=== PATIENT | male | born 1955 | race Caucasian/White ===

== ENCOUNTER 2022-10-16 07:04 | Emergency (ER) | payer BC, SELFPAY ==
[2022-10-16 07:06] VITALS: BP 173/93; PULSE 82; RESP 27; TEMP 37.2; O2SAT 100; BMI 32.8
--- NOTE | 2022-10-16 07:19 | CT_ITS ---
HISTORY: headache, syncope. TECHNIQUE: Multiple axial images were obtained of the head without intravenous contrast. A radiation dose optimization technique was used for this scan. 244 images. COMPARISON: None. FINDINGS: BRAIN PARENCHYMA: Multiple foci and zones of low attenuation in the bilateral cerebral white matter compatible with chronic small vessel ischemic gliosis. No acute intra-axial hemorrhage identified. CSF SPACES: Generalized volume loss. No midline shift or other significant mass effect. No acute extra-axial hemorrhage seen. OTHER: Intact calvarium. Mild fluid in the right maxillary sinus. Unremarkable orbits. CT/Brain/Head without Contrast IMPRESSION: No acute intracranial process identified. Mild chronic involutional and white matter changes. Electronically Signed: Nini Wharton MD at 8:11 EDT ,
--- NOTE | 2022-10-16 07:19 | EKG12_ITS ---
Test Reason : CP Blood Pressure : / mmHG Vent. Rate : 080 BPM Atrial Rate : 080 BPM P-R Int : 148 ms QRS Dur : 090 ms QT Int : 380 ms P-R-T Axes : 052 010 021 degrees QTc Int : 438 ms Normal sinus rhythm Inferior infarct , age undetermined Abnormal ECG No previous ECGs available Confirmed by DEB CRUZ ([id number]), editorial assistant ANNA BRAY ([id number]) on 10/30/2022 10:53:22 AM Referred By: ROYCE Confirmed By:DEB CRUZ
--- NOTE | 2022-10-16 07:19 | CT_ITS ---
INDICATION: Chest pain. Syncopal episode. Headache. Left arm numbness. EXAMINATION: CTA CHEST, ABDOMEN AND PELVIS WITH CONTRAST - TECHNIQUE: A CTA of the chest, abdomen, and pelvis is obtained with sagittal and coronal reconstructed MIP views. Three-dimensional surface rendered sequence of the thoracic and abdominal aorta was obtained. A radiation dose optimization technique was used for this scan. mL of Isovue-370. Oral contrast: None. COMPARISON: None. FINDINGS: CT CHEST: THORACIC AORTA: Mild atherosclerotic plaque formation of the aortic arch. No evidence of aortic dissection. ABDOMINAL AORTA: Atherosclerotic plaque formation of the abdominal aorta and the major visceral branches. LUNGS: The lungs are well-expanded without acute or chronic changes. No effusions or pneumothorax. MEDIASTINUM: The thyroid gland is normal. No mediastinal or hilar adenopathy. HEART: Heart is normal size. No pericardial effusion. Coronary artery calcification. CT ABDOMEN AND PELVIS: LIVER: The liver enhances homogeneously. No masses identified. GALLBLADDER: The patient is status post cholecystectomy. SPLEEN: Normal. PANCREAS: No masses or inflammation. ADRENAL GLANDS: Normal. KIDNEYS AND URETERS: The kidneys both enhance appropriately. There are normal size and shape. No hydronephrosis or nephrolithiasis. No renal masses or cysts. STOMACH: Surgical clips are seen in the gastroesophageal junction. SMALL BOWEL: No abnormal distention of the small bowel. MESENTERY: No mesenteric inflammation. No ascites. COLON: No significant diverticulosis, masses or inflammation. The colon otherwise is normal. There is a large fatty ileocecal valve. APPENDIX: The appendix is visualized and normal. IVC: Normal. RETROPERITONEUM: No retroperitoneal lymphadenopathy. PELVIC STRUCTURES: Normal bladder. SOFT TISSUES ABDOMEN: The anterior abdominal wall is normal. SOFT TISSUE CHEST: The extrathoracic soft tissues are normal. BONES: Mild degree of degenerative changes of the lumbar spine. CT/CTA Chst, Abd, Pel W and/or WO IMPRESSION: Mild degree of atherosclerotic plaque formation of the aortic arch. No evidence of aortic dissection. Atherosclerotic plaque formation of the abdominal aorta and major visceral branches. Status post cholecystectomy. Electronically Signed: Nj Douglas MD at 8:26 EDT ,
[2022-10-16 07:25] LABS: Absolute Lymphocyte Count 0.79 X10^3/uL (0.83-4.51); Absolute Neutrophil Count 10.8 X10^3/uL (2.0-7.7); Basophil# 0.02 X10^3/uL; Basophil% 0.2 % (0-1); Hematocrit 45.8 % (40-54); Hemoglobin 15.1 g/dL (13.0-16.5); Lymphocyte # 0.79 X10^3/ul (0.83-4.51); Lymphocyte % 6.7 % (19-41); Mean Corpuscular Hgb 29.5 pg (27.0-32.0); Mean Corpuscular Volume 89.6 fL (80-94); Mean Platelet Vol. 8.8 fl (6.2-12.0); Monocyte# 0.25 X10^3/uL; Monocyte% 2.1 % (0-10); NRBC Flagged by Analyzer 0 % (0-5); Neutrophil # 10.77 X10^3/uL (2.7-7.7); Neutrophil % 90.8 % (47-70); Platelet Count 334 K/mm3 (150-450); RBC Distribution Width CV 12.8 % (11.6-14.6); RBC Distribution Width SD 42.3 fl (35.1-43.9); Red Blood Count 5.11 M/mm3 (4.6-6.2); White Blood Count 11.9 K/mm3 (4.4-11.0)
[2022-10-16] MEDS: 0.9% Normal Saline 1,000 ML 150 ML IV (07:30)
--- NOTE | 2022-10-16 07:34 | EDS_ITS ---
HPI History of Present Illness Chief Complaint: Chest Pain Informant: patient Onset/Context/Timing Onset: Today Narrative Narrative: Patient presents secondary to chest pain and syncope. Patient states that when he got up for work this morning he was slightly lightheaded. He did not eat breakfast but that is not abnormal for him. While going to work he continued to feel lightheaded and reports having 4 brief syncopal episodes. He states after he passed out he had developed mid chest pressure. He now states he has pain in the epigastrium. He also complains of a headache. [facility] Medical History (Updated 10/16/22 @ 08:[address] Rosa Monroe MD) Hypertension Torn rotator cuff Home Medications apremilast 30 mg tablet (Otezla) 30 mg PO BID 10/16/22 [History Last Taken Unknown] atorvastatin 20 mg tablet 20 mg PO DAILY 10/16/22 [History Last Taken Unknown] meloxicam 15 mg tablet 15 mg PO DAILY 10/16/22 [History Last Taken Unknown] multivitamin (Daily Multi-Vitamin tablet) 1 tab PO DAILY 10/16/22 [History Last Taken Unknown] sildenafil 100 mg tablet 100 mg PO DAILY 10/16/22 [History Last Taken Unknown] valsartan 160 mg tablet 160 mg PO BID 10/16/22 [History Last Taken Unknown] Allergy/AdvReac Type Severity Reaction Status Date / Time No Known Allergies Allergy Verified 10/16/22 07:05 Surgical History (Updated 10/16/22 @ 08:44 by Cheyenne Moore) History of cholecystectomy Social History Smoking Status: Never smoker ROS ROS ED Constitutional Constitutional ED: Denies chills or fever(s) Eyes Eyes: Denies change in vision or discharge from eye(s) ENT ENT ED: Denies discharge from eye(s), rhinorrhea or sore throat Cardiovascular Cardiovascular: Reports chest pain; Denies palpitations Respiratory/Chest Respiratory/Chest: Reports dyspnea; Denies cough Gastrointestinal Gastrointestinal: Reports abdominal pain; Denies diarrhea, nausea or vomiting Genitourinary Genitourinary ED: Denies dysuria Musculoskeletal Musculoskeletal: Denies back pain or extremity pain Integumentary Denies Abrasions or rash Neurologic Neurologic: Reports headache(s); Denies weakness Psychiatric Psychiatric: Denies anxiety or depression Allergic/Immunologic Allergic/Immunologic ED: Denies lip swelling or urticaria EXAM Physical Exam Const Vital Signs: 10/16/22 07:06 10/16/22 07:09 10/16/22 08:52 Temperature 98.9 F Temperature Source Temporal Pulse Rate 82 85 Respiratory Rate 27 H 17 Respiratory Effort Normal Non-Labored Blood Pressure 173/93 H 153/90 H Blood Pressure Mean 119 111 Pulse Ox 100 94 Oxygen Delivery Method Room Air Room Air 10/16/22 08:52 Temperature 98.3 F Temperature Source Temporal Pulse Rate 85 Respiratory Rate 17 Respiratory Effort Blood Pressure 153/90 H Blood Pressure Mean 111 Pulse Ox 94 Oxygen Delivery Method Room Air Positive well nourished and well developed General Appearance ED: well developed HEENT Reports normocephalic and head/scalp atraumatic Eyes PERRL and EOMs intact bilaterally Neck supple Chest Wall inspection of chest normal and palpation of chest normal Resp normal respiratory effort and clear to auscultation bilaterally Cardio regular rate and regular rhythm GI non-tender Auscultation: hypoactive bowel sounds Palpation: soft Extremity normal to inspection Neuro oriented x3 and no sensory deficits noted Sensorium / Orientation: alert Motor Exam: strength 5/5 throughout Psych Psych Narrative: Flat affect Skin no rashes or lesions noted MDM MDM MDM Narrative Medical decision making narrative: Patient placed on secured entrance monitor. EKG obtained to evaluate for cardiac arrhythmia/ischemia. Labwork obtained to evaluate for leukocytosis, anemia, and electrolyte derangement. CT scan of the head obtained along with CTA of the chest, abdomen, and pelvis to evaluate for possible dissection. History & Record Review Discussion w/independent historian: Patient Additional record(s) reviewed:: Prior outpatient record Lab Data Attestation: I reviewed the patient's lab results. Labs: Laboratory Results - last 24 hr 10/16/22 10/16/22 07:10 07:52 WBC 11.9 H RBC 5.11 Hgb 15.1 Hct 45.8 MCV 89.6 MCH 29.5 MCHC 33.0 RDW Std Deviation 42.3 RDW Coeff of Javier 12.8 Plt Count 334 MPV 8.8 Immature Gran % (Auto) 0.200 Neut % (Auto) 90.8 H Lymph % (Auto) 6.7 L [place] % (Auto) 2.1 Eos % (Auto) 0.0 Baso % (Auto) 0.2 Absolute Neuts (auto) 10.8 H Absolute Lymphs (auto) 0.79 L Nucleated RBC % 0 Sodium 137 Potassium 3.6 Chloride 104 Carbon Dioxide 27.0 Anion Gap 6 BUN 15 Creatinine 0.90 Estim Creat Clear Calc 71.18 Est GFR (MDRD) Af Amer 109 Est GFR (MDRD) Non-Af 90 BUN/Creatinine Ratio 16.6 Glucose 144 H Calcium 8.7 Total Bilirubin 0.70 Direct Bilirubin 0.21 AST 15 ALT 31 Alkaline Phosphatase 102 Troponin I High Sens 4 Total Protein 8.0 Albumin 3.8 Globulin 4.2 POC Glucose 130 H Radiography Diagnostic Testing: Clinical Impression(s) from Imaging Studies Brain CT 10/16/22 07:19 IMPRESSION: No acute intracranial process identified. Mild chronic involutional and white matter changes. Electronically Signed: Nini Wharton MD at 8:11 EDT , Chest/Abdomen/Pelvis CTA 10/16/22 07:19 IMPRESSION: Mild degree of atherosclerotic plaque formation of the aortic arch. No evidence of aortic dissection. Atherosclerotic plaque formation of the abdominal aorta and major visceral branches. Status post cholecystectomy. Electronically Signed: Nj Douglas MD at 8:26 EDT , EKG Initial EKG: Attestation: I personally reviewed and interpreted this EKG as follows: Interpretation: Sinus Rhythm (Sinus at 80 with no acute ischemia.) Treatment and Re-Evaluation :: CBC was a white count of 11.9 with 90% neutrophils. Hemoglobin is normal at 15.1. Chemistry studies are unremarkable. LFTs normal. Glucose is 144. Initial troponin is normal at 4. CT scan of the head reveals no acute abnormalities. CTA of the chest, abdomen, and pelvis reveals mild atherosclerotic plaque formation. No evidence of dissection. EKG is sinus rhythm with no acute ischemia. No significant cardiac arrhythmias have been noted while in the emergency room. On repeat evaluation patient is resting comfortably. He states he still has soreness in his chest and upper abdomen. Given his chest pain with multiple episodes of syncope I did recommend observation overnight. I will speak with [facility]. Patient was seen by Dr. Cardoza in the emergency room. After discussion with patient and he states the patient had a cardiac work-up within the last year including a stress test and a 30-day monitor. Patient is now seen he does not want to stay in the hospital. is comfortable taking him home. 2-hour repeat troponin is obtained and is normal. I will have the patient sign out AMA. Discharge Plan Triage Chief Complaint: Chest Pain ED Provider: oRsa Monroe Dx/Rx/DC Orders Clinical Impression: Syncope, Chest pain Primary Care Provider: Care Physician,No Primary Disposition Disposition: Home, Self Care
[2022-10-16 07:58] LABS: AST(SGOT) 15 U/L (15-37); Alanine Aminotransfer ALT/SGPT 31 U/L (16-61); Albumin, Serum 3.8 g/dL (3.2-5.0); Alkaline Phosphatase 102 U/L (45-117); Anion Gap 6 (5-15); BUN 15 mg/dL (7-18); BUN/Creat Ratio 16.6 RATIO (10-20); Bilirubin, Direct 0.21 mg/dL (0.00-0.30); Calcium,Total 8.7 mg/dL (8.5-10.1); Chloride 104 mmol/L (98-107); EST Glomerular Filtration Rate 90 mL/min (>60); Est Glom Filt Rate - Afr Amer 109 mL/min (>60); Estimated Creatinine Clearance 71.18 ml/min; Globulin 4.2 g/dL (2.2-4.2); Glucose 144 mg/dL (74-106); Potassium 3.6 mmol/L (3.5-5.1); Sodium Level 137 mmol/L (136-145); Troponin-I HS (w/2H Reflex) 4 pg/mL (3.0-78.0)
[2022-10-16 08:10] LABS: Bedside Glucose 130 mg/dL (74-106)
--- NOTE | 2022-10-16 08:38 | NURSING ---
DR BAKER FOR DR MURILLO
[2022-10-16 08:52] VITALS: BP 153/90; PULSE 85; RESP 17; TEMP 36.8; O2SAT 94
--- NOTE | 2022-10-16 08:52 | NURSING ---
89 TERELETSKY CHEST PAIN, SYNCOPE
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
[2022-10-16 09:22] LABS: Reflex Troponin-HS? (from REC) Y
[2022-10-16 09:53] LABS: Troponin-I HS 5 pg/mL (3.0-78.0)
[2022-10-16 10:29] VITALS: PULSE 71; PULSE 75; RESP 16; O2SAT 95
--- NOTE | 2022-10-16 10:41 | ED.RN ---
reinforced what dr kumar already explained to pt about sx and risks. pt verbalizes understanding and persistent about going home. pt signed ama form. driving him home
== END 2022-10-16 10:39 | disposition home or self-care (01) ==
LOC: ED 08:34 → PCU 09:02
PROVIDERS: Emergency Provider Emergency Medicine; Visit Provider Emergency Medicine
DX: R55 Syncope and collapse (principal); R07.9 Chest pain, unspecified; I10 Essential (primary) hypertension; Z79.899 Other long term (current) drug therapy
CPT/HCPCS: 70450; 71275; 74174; 80048; 80076; 82962; 84484; 85025; 93005; 99285; J7030; Q9967; A4216